=== PATIENT | female | born 1945 | race Caucasian/White ===

== ENCOUNTER 2021-04-06 11:29 | Emergency (ER) | payer BC ==
--- NOTE | 2021-04-06 12:36 | XRAY Report ---
PROCEDURE: Lumbar Spine 2 View INDICATIONS: low back pain TECHNIQUE: 2 views of the lumbar spine were acquired. COMPARISON: None. FINDINGS: Bones: 5 [id number] vertebrae are present. There is normal bony alignment. No vertebral body compression fractures. No suspicious bony lesions. The disc heights are well preserved. Facet arth ropathy is seen, which is most prominent inferiorly. Soft tissues: Overlying bowel gas pattern is normal. No suspicious soft tissue calcifications. Ath erosclerotic calcification is seen. IMPRESSION: No acute plain film abnormality is seen. Lower lumbar spine facet arthropathy is seen. Well-preserved disc heights. Reviewed by: Sudarshan Campuzano MD on 04/06/2021 11:35 AM [facility] Approved by: Sudarshan Campuzano MD on 04/06/2021 11:35 AM [facility] Station ID: [id number]
[2021-04-06] MEDS ORDERED: DEXAMETHASONE 10 MG/ML VIAL PO STA (12:48)
[2021-04-06] MEDS ORDERED: CHERRY SYRUP 10 ML UDC PO ONE (12:48)
[2021-04-06] MEDS ORDERED: HYDROcod/ACETAM 5/325 MG TABLET PO STA (12:48)
--- NOTE | 2021-04-06 13:03 | ED Physician Documentation ---
PD HPI BACK PAIN - Stated complaint Stated Complaint: BACK/HIP PX - Chief complaint Chief Complaint: Back Pain - History obtained from History obtained from: Patient, Family - History of Present Illness Timing - onset: How many days ago (3-4) Pain level max: 7 Pain level now: 5 Location: Lower, Left Quality: Pain, Similar to prior episodes. No: Spasm, Sharp, Tearing, Aching, Throbbing, Dull Associated symptoms: No: Fever, Weakness, Numbness, Incontinent of urine, Unable to urinate, Hematuria, Incontinent of stool Improves with: Rest Worsened by: Movement - Additional information Additional information: Patient is a 75-year-old female visiting from [place] who presents to the emergency department with 3 to 4 days of left low back pain rating to the left leg. Worse with movement, better with rest. She has had issues with her back in this area before. Has received cortisone injections before. No loss of bowel or bladder control. No trauma. No fever. 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 : Renal insuffiency HEENT: None Psych: None Musculoskeletal: None Derm: None - Past Surgical History Past Surgical History: No - Present Medications Home Medications: Ambulatory Orders Medication Instructions Recorded Confirmed HYDROcod/ACETAM 5/325 [[place] 5/325] 1 - 2 ea PO Q6H PRN #14 tablet 04/06/21 methylPREDNISolone [Medrol] 4 mg PO DAILY #1 pkg 04/06/21 - Allergies Allergies/Adverse Reactions: Allergies Allergy/AdvReac Type Severity Reaction Status Date / Time No Known Drug Allergies Allergy Verified 04/06/21 11:44 - Social History Does the pt smoke?: No Smoking Status: Never smoker Does the pt drink ETOH?: No Does the pt have substance abuse?: No - Immunizations Immunizations are current?: Yes - POLST Patient has POLST: No PD ED PE NORMAL - Vitals Vital signs reviewed: Yes - General General: Alert and oriented X 3, No acute distress - HEENT HEENT: Moist mucous membranes - Neck Neck: Supple, no meningeal sign - Cardiac Cardiac: RRR, Strong equal pulses - Respiratory Respiratory: No respiratory distress, Clear bilaterally - Abdomen Abdomen: Soft, Non tender, Non distended - Back Back: No spinal TTP, Other (No midline tenderness to palpation. No step-off or deformity. There is tenderness over the left SI joint.) - Derm Derm: Warm and dry - Extremities Extremities: Normal ROM s pain, No edema, No calf tenderness / cord - Neuro Neuro: Alert and oriented X 3, No motor deficit, No sensory deficit, Other (Normal bilateral lower extremity patellar and ankle jerk reflexes. Normal great toe extension bilaterally. no saddle anesthesia) - Psych Psych: Normal mood, Normal affect Results - Vitals Vitals: Vital Signs - 24 hr 04/06/21 11:41 Temperature 36.3 C L Heart Rate 66 Respiratory 17 Rate Blood Pressure 136/78 H O2 Saturation 99 Oxygen O2 Source Room air PD MEDICAL DECISION MAKING - ED course Complexity details: considered differential (No cauda equina, no spinal epidural abscess, no fracture, no aortic dissection or evidence of aneursym rupture), d/w patient ED course: Patient is a 75-year-old female with what appears to be sciatica, possible sacroiliitis. Will prescribe pain medication for home. She cannot take anti- inflammatories secondary to "kidney issues". Will prescribe steroids for home as well. Patient is ambulating well in the emergency department. No evidence of cauda equina, epidural abscess. Patient counseled regarding signs and symptoms for which I believe and urgent re-evaluation would be necessary. Patient with good understanding of and agreement to plan and is comfortable going home at this time This document was made in part using voice recognition software. While efforts are made to proofread this document, sound alike and grammatical errors may occur. Departure - Departure Disposition: Home, Self Care Clinical Impression: Sciatica Qualifiers: Laterality: left Qualified Code(s): M54.32 - Sciatica, left side Condition: Good Instructions: ED Sciatica Follow-Up: your,doctor in 1 week [Other] Prescriptions: methylPREDNISolone [Medrol] 4 mg PO DAILY #1 pkg HYDROcod/ACETAM 5/325 [[place] 5/325] 1 - 2 ea PO Q6H PRN #14 tablet PRN Reason: Pain Comments: Follow-up with your doctor for further care. Return if you worsen. The steroid should help to decrease the inflammation. you can use the Vicodin as needed for breakthrough pain. I am prescribing a short course of narcotic pain medication for you. These are potentially dangerous and addictive medications that should be used carefully. These medications may constipate you. Take an frxk-glk-ztuuupa stool softener (docusate) twice daily with plenty of water while taking these medications. If you go 24 hours without a bowel movement, take ghsv-aij-mlhjzuv miralax, per package instructions. Do not drink or drive while taking these medications. If you received narcotic or sedating medications while in the emergency department, do not drive for 24 hours. Store this medication in a safe, secure place and out of reach of children. It is a violation of federal law to give or sell this medication to another person or to use in a manner other than prescribed. The ED will not refill narcotic prescriptions, including prescriptions lost or stolen. To dispose of unwanted medications: 1. [facility] at [address] in [place] has a medication drop box. They accept prescription medications (in pill form) Wednesday through Wednesday 9:00 a.m. to 5:00 p.m. 2. [facility] [employer] accepts prescription medications (in pill form only) for disposal year round. Call for more information. 3. Contact the [facility] for the next [facility] sponsored prescription drug collection event. , [phone], or [phone];
[2021-04-06 13:28] VITALS: BP 160/60
== END 2021-04-06 13:25 | disposition home or self-care (01) ==
LOC: ED 11:29
DX: M54.32 Sciatica, left side (principal); N28.9 Disorder of kidney and ureter, unspecified
CPT/HCPCS: 72100; 99284; A9270